=== PATIENT | male | born 1995 | race Caucasian/White ===

== ENCOUNTER 2022-01-31 14:51 | Emergency (ER) | payer MEDICAID | END 2022-01-31 17:52 | LOC: JP.ED 14:51 | DX: S09.90XA Unspecified injury of head, initial encounter (principal); F10.129 Alcohol abuse with intoxication, unspecified; Z88.0 Allergy status to penicillin; Z72.0 Tobacco use; Y90.8 Blood alcohol level of 240 mg/100 ml or more; W19.XXXA Unspecified fall, initial encounter | CPT/HCPCS: 36415; 70450; 70486; 80305-QW; 80307; 99283; 99285-25 ==